=== PATIENT | male | born 1985 | race American Indian/Alaskan Native ===

== ENCOUNTER 2019-10-25 10:39 | Emergency (ER) | payer MEDICAID ==
[2019-10-25] MEDS ORDERED: SULFAMETHOXAZOLE/TRIMETHOPRIM 800/160MG DS TAB PO ONE (16:18)
--- NOTE | 2019-10-25 16:25 | Emergency Department Report ---
HPI - General Chief Complaint: Skin Rash Time Seen by Provider: 10/25/19 16:02 - HPI HPI: This is a 34-year-old -[place] male presents to the emergency department with a few different complaints. The patient has a one-week history of a rash that goes from the middle of his chest, around the right armpit, and to the right mid to upper back. It initially started under his right arm and spread both forwards and backwards. It is both itchy and slightly painful. He went to see his PCP regarding the rash and was placed on methylprednisolone on 10/20/2019, which he has been taking compliantly. He initially went to see his primary care physician secondary to loss of smell. He was given some Flonase which he said did not help with his symptoms. Lastly, the patient now complains of left shoulder pain that radiates down the left arm that started since waking up this morning. He denies any chest pain or any shortness of breath but does feel like he has trouble fully taking a breath on that left side. Patient denies any past medical history. He is a former smoker having quit 2 months ago. Patient stays at [facility]. ED Past Medical Hx - Past Medical History Previous Medical History?: Yes Additional medical history: Rash - Surgical History Past Surgical History?: No - Social History Smoking Status: Former Smoker Substance Use Type: Marijuana - Medications Home Medications: Home Medications Medication Instructions Recorded Confirmed Last Taken Type Albuterol Mdi (or & Nicu Only) 2 puff IH QID PRN #8.5 gram 10/25/19 Unknown Rx [ProAir HFA Inhaler] Ibuprofen [Motrin 800 MG tab] 800 mg PO Q8HR PRN #20 tablet 10/25/19 Unknown Rx Valacyclovir HCl [Valtrex] 1,000 mg PO TID #21 tablet 10/25/19 Unknown Rx ED Review of Systems ROS: Stated complaint: SHOULDER PAIN Other details as noted in HPI Comment: All other systems reviewed and negative Constitutional: fever. denies: chills Eyes: denies: eye pain, vision change ENT: denies: ear pain, throat pain Respiratory: denies: cough, wheezing Cardiovascular: denies: chest pain, edema Gastrointestinal: denies: abdominal pain, vomiting Genitourinary: denies: dysuria, discharge Musculoskeletal: arthralgia. denies: joint swelling Skin: rash, lesions Neurological: denies: headache, weakness Physical Exam - Physical Exam Vital Signs: Vital Signs 10/25/19 10:45 Temperature 100.4 F H Pulse Rate 99 H Respiratory 18 Rate Blood Pressure 123/79 O2 Sat by Pulse 98 Oximetry Physical Exam: GENERAL: The patient is well-developed well-nourished. HENT: Normocephalic. Atraumatic. Patient has moist mucous membranes. EYES: Extraocular motions are intact. Pupils equal reactive to light gatito aterally. NECK: Supple. Trachea is midline. CHEST/LUNGS: Clear to auscultation. There is no respiratory distress noted. HEART/CARDIOVASCULAR: Regular. There is no tachycardia. There is no murmur. ABDOMEN: Abdomen is soft, nontender. Patient has normal bowel sounds. There is no abdominal distention. SKIN: Patient has a circular area of erythema and induration to the left anterior proximal thigh. There is a rash starting at the midsternal chest that goes to the right chest wall, right axilla and proximal right upper extremity, and to the right upper back. There are pustular and/or vesicular lesions to the midsternal and right-sided chest wall. Some of the areas towards the right lateral chest wall in the axilla have formed more of a ulceration or eschar. NEURO: The patient is awake, alert, and oriented. The patient is cooperative. The patient has no focal neurologic deficits. Normal speech. MUSCULOSKELETAL: There is no tenderness or deformity. There is no limitation range of motion. ED Course Vital Signs 10/25/19 10:45 Temperature 100.4 F H Pulse Rate 99 H Respiratory 18 Rate Blood Pressure 123/79 O2 Sat by Pulse 98 Oximetry ED Medical Decision Making - Lab Data Result diagrams: 10/25/19 16:35 10/25/19 16:35 - EKG Data -: EKG Interpreted by Me EKG shows normal: sinus rhythm, axis, intervals, QRS complexes, ST-T waves Rate: normal - EKG Data When compared to previous EKG there are: previous EKG unavailable Interpretation: normal EKG - Radiology Data Radiology results: image reviewed interpreted by me: Chest x-ray does not show any acute process. There are no pleural effusions, obvious pneumonia and there is no pneumothorax. No significant cardiomegaly. - Medical Decision Making Regarding the patient's rash, it does appear consistent with shingles. However it does appear to involve multiple dermatomes but does not cross midline and just affects the right side of his body. There are areas that are vesicular and pustular and then other areas that appear slightly ulcerated and eschared. Since there are a few areas that appear vesicular and are pustular, the patient has been placed on Valtrex. He is also been given a referral for dermatology for further differentiation/diagnosis. Patient presents with a low-grade fever. He complains of some history of anosmia. Given this current pandemic, this gives concern for Covid 19. He denies any cough or significant shortness of breath but says it feels like he cannot fully inflate his lung on the left side. A chest x-ray was done that did not show any pneumonia, pneumothorax, pleural effusions, or any other acute p rocesses. Patient has not had any hypoxia or signs of any respiratory or acute distress. He will be discharged home to quarantine/isolate and seek outpatient Covid 19 testing. The patient complained of some acute left shoulder pain that radiated down the left arm. An EKG was done that did not show any morphology consistent with ST elevation [place]. The patient's labs have been mostly unremarkable including CBC, metabolic panel and a negative troponin. The patient was placed in patient isolation and droplet precautions immediately upon arrival to the main emergency department. I wore full PPE gear including a surgical hat, goggles, N95 mask, surgical mask, gown, and double gloves for every encounter. All of the lab and imaging results were discussed with the patient, as well as the plan for outpatient follow-up, and he understands and agrees to the plan. He will return to the emergency department with any worsening of his symptoms or with any acute distress. Critical Care Time: No Critical care attestation.: If time is entered above; I have spent that time in minutes in the direct care of this critically ill patient, excluding procedure time. ED Disposition Clinical Impression: Suspected 2019 novel coronavirus infection Shingles Qualifiers: Herpes zoster complications: without complications Qualified Code(s): B02.9 - Zoster without complications Left shoulder pain Qualifiers: Chronicity: acute Qualified Code(s): M25.512 - Pain in left shoulder Disposition: DC-01 TO HOME OR SELFCARE Is pt being admited?: No Condition: Stable Instructions: COVID-19, Herpes Zoster (ED), Arthralgia (ED) Additional Instructions: The rash that you have appears consistent with shingles, herpes zoster. If so, this should go away over the next 1 to 2 weeks. You are contagious for spreading this rash/virus until the lesions have crusted over. I have given you a referral for a local physician scribe to follow-up regarding this rash. Given your fever and loss of smell, and given this current pandemic, you are shahnaz picious for having Covid 19. I am unable to test you for this at this time. Please isolate/quarantine yourself. Stay away from anybody who is immunocompromised, elderly, or chronically ill/debilitated. I recommend that you seek outpatient Covid 19 testing. This can be done at some primary care offices, some urgent cares, and there should be a list available through the [facility]. You can take Tylenol every 4-6 hours and ibuprofen every 6-8 hours, using dosing on the back of the bottle, as needed for any fever or discomfort. Return to the emergency department with any worsening of your symptoms or with any acute distress. Prescriptions: Ibuprofen [Motrin 800 MG tab] 800 mg PO Q8HR PRN #20 tablet PRN Reason: Pain , Severe (7-10) Albuterol Mdi (or & Nicu Only) [ProAir HFA Inhaler] 2 puff IH QID PRN #8.5 gram PRN Reason: Shortness Of Breath Valacyclovir HCl [Valtrex] 1,000 mg PO TID #21 tablet Referrals: [facility] [Provider Group] - 3-5 Days CHUCKIE SAINZ RN [Primary Care Provider] - 3-5 Days
--- NOTE | 2019-10-25 17:01 | XRay Report ---
CHEST 1 VIEW INDICATION / CLINICAL INFORMATION: SOB. COMPARISON: None available. FINDINGS: SUPPORT DEVICES: None. HEART / MEDIASTINUM: No significant abnormality. LUNGS / PLEURA: Low lung volumes with mild bibasilar atelectasis. No significant pleural or parenchym al abnormality. No pneumothorax. ADDITIONAL FINDINGS: No significant additional findings. IMPRESSION: 1. Low lung volumes without acute abnormality. Signer Name: Rex Shannon MD Signed: 10/25/2019 4:56 PM Workstation Name: [id number]
[2019-10-25] MEDS ORDERED: ACETAMINOPHEN 325 MG TAB PO ONE (17:03)
[2019-10-25 17:17] LABS: Hemoglobin 14.7 gm/dl (11.8-15.2); Mean Corpuscular HGB Conc 32 % (32-34); Mean Corpuscular Volume 84 fl (84-94); Platelet Count 329 K/mm3 (140-440); Red Blood Count 5.46 M/mm3 (3.65-5.03); Red Cell Distribution Width 14.7 % (13.2-15.2)
[2019-10-25 17:47] LABS: BUN/Creatinine Ratio 11; Blood Urea Nitrogen 13 mg/dL (9-20); Calcium 9.3 mg/dL (8.4-10.2); Hemolysis Index 44
[2019-10-25 20:17] VITALS: BP 113/75
== END 2019-10-25 20:19 | disposition home or self-care (01) ==
LOC: ED 10:39
DX: B02.9 Zoster without complications (principal); M25.512 Pain in left shoulder; F12.90 Cannabis use, unspecified, uncomplicated; Z87.891 Personal history of nicotine dependence; Z79.899 Other long term (current) drug therapy; Z20.828 Contact with and (suspected) exposure to other viral communicable diseases
CPT/HCPCS: 36415; 71045; 80048; 84484; 85025; 93005